=== PATIENT | male | born 1960 | race Caucasian/White ===

== ENCOUNTER 2022-07-06 11:12 | Emergency (ER) | payer BC, SELFPAY ==
[2022-07-06 11:22] VITALS: PULSE 88; RESP 16; TEMP 35.6; O2SAT 98
[2022-07-06 11:28] VITALS: BP 180/110
--- NOTE | 2022-07-06 11:45 | ED.GENADULT ---
HPI - General Adult General Chief complaint: Upper Respiratory Infection Stated complaint: Chest Congestion Source: patient Mode of arrival: ambulatory Limitations: no limitations History of Present Illness HPI narrative: Patient presents for evaluation of sinus symptoms that have been bothersome over the last 2 weeks. Symptoms include sinus congestion mucopurulent discharge from the nares. Approximately 2-3 weeks before that time he had similar symptoms. Those symptoms improved. No fever, chills, nausea, vomiting. He reports of productive cough of yellow sputum. Denies shortness of breath. His is developing similar symptoms. He does not smoke. Tried taking Mucinex DM for his symptoms. Related Data Allergies Allergy/AdvReac Type Severity Reaction Status Date / Time No Known Allergies Allergy Verified 07/06/22 11:22 Review of Systems Review of Systems: CONSTITUTIONAL: Denies fever, chills, or sweats. EYES: Denies visual changes, redness, or discharge. ENT: Reports sinus congestion and mucopurulent discharge from nares. Denies sore throat or hearing loss. CARDIOVASCULAR: Denies chest pain, palpitations, or edema. RESPIRATORY: Reports productive cough of yellow sputum. Denies shortness of breath. GASTROINTESTINAL: Denies abdominal pain, nausea, vomiting, or diarrhea. GENITOURINARY: Denies dysuria or hematuria. SKIN: Denies rash or itching. MUSCULOSKELETAL: Denies back pain, joint pain, or myalgia. NEUROLOGIC: Denies headache, numbness, dizziness, or weakness. PSYCHIATRIC: Denies anxiety or depression. [facility] Past Medical History Medical History No pertinent past medical history Surgical History Surgical History No pertinent past surgical history Family History Family History Mother Family history non-contributory Social History Social History Smoking status: Never smoker Substance use: never Living arrangements: with family Gender identity (if verbalized by the patient): Male Sexual Orientation (if Verbalized by the Patient): Straight or Heterosexual Spiritual care concerns: No Exam Narrative: GENERAL: Well-appearing, well-nourished, and in no acute distress. HEAD: Normocephalic, atraumatic. EYES: PERRLA and EOMI. ENT: Bilateral maxillary sinus tenderness. There is mucosal purulent discharge noted bilateral nares. Mucous membranes moist. Oropharynx without tonsillar hypertrophy exudate or other lesions. Bilateral TMs pearly prieto nonbulging NECK: Supple. No adenopathy or masses. No carotid bruits or JVD CHEST: Clear to auscultation. No respiratory distress. No wheezes rales or rhonchi HEART: Regular rate and rhythm. No murmur heard. Normal peripheral pulses. ABDOMEN: Soft, nontender, nondistended, normal active bowel sounds. EXTREMITIES: Normal range of motion. No edema. SKIN: Warm, dry, no rash. NEURO: No focal deficits. Alert and oriented x3. PSYCH: Normal mood and affect. Course Course Emergency Course: This is a 62-year-old male who presented for evaluation of sinus symptoms. Based on duration of time for which she has been symptomatic, improvement in symptoms follow-up by recurrence thereafter, mucopurulent discharge, he meets criteria for ABRS. Increase hydration. OTC agents for symptom management. Will discharge with Augmentin. Follow up with primary provider. BP is elevated today. He has no CP or SOB. No hx of HTN. Advised he follow up with PCP this week for BP reassessment. Go to the ER for worsening symptoms. Patient in agreement with plan of care Level of Care: Express Care Visit Vital Signs Vital signs: Vital Signs Temperature 35.6 C L 07/06/22 11:22 Pulse Rate 88 07/06/22 11:22 Respiratory Rate 16 07/06/22 11:22
== END 2022-07-06 11:50 | disposition home or self-care (01) ==
PROVIDERS: Emergency Provider Nurse Practitioner; PCP Emergency Medicine
DX: J01.90 Acute sinusitis, unspecified (principal); R03.0 Elevated blood-pressure reading, without diagnosis of hypertension
CPT/HCPCS: 99213; G0463